=== PATIENT | male | born 1995 | race Caucasian/White ===

== ENCOUNTER 2016-09-02 16:57 | Emergency (ER) | payer OTHER ==
[~2016-09-02] VITALS: Ht 172.7 cm; Wt 80.0 kg
[2016-09-02 17:19] VITALS: Ht 172.7 cm; Wt 80.0 kg
[2016-09-02] MEDS ORDERED: AMO500 PO (17:34)
[2016-09-02] MEDS ORDERED: IBUP-1542 PO (17:34)
[2016-09-02] MEDS ORDERED: ONDA4TAB14 PO (17:35)
--- NOTE | 2016-09-02 17:42 | ERD ---
ER Documentation Chief Complaint Date/Time DATE: 09/02/16 TIME: 17:39 Chief Complaint throat and rt ear pain x 5 days HPI 21-year-old male patient with no significant past medical history presents to the ED complaining of sore throat that started 5 days ago. Reports that he saw white spots on his right side of the tonsil. States that he is nauseous but denies any vomiting or diarrhea. States that this is the first time it is happening. Denies any chest pain, shortness of breath, abdominal pain. States that he has odynophagia but denies any dysphagia. Denies any wheezing, fever, chills, abdominal pain, rashes. ROS All systems reviewed and are negative except as per history of present illness. Medications Home Meds Active Scripts Ondansetron (Ondansetron Odt) 4 Mg Tab.rapdis, 4 MG PO Q6H Y for NAUSEA AND/OR VOMITING, #10 TAB Prov:SUKHDEEP ONEIL PA-C 09/02/16 Ibuprofen* (Motrin*) 600 Mg Tab, 600 MG PO Q6, #30 TAB Prov:SUKHDEEP ONEIL PA-C 09/02/16 Amoxicillin* (Amoxicillin*) 500 Mg Cap, 500 MG PO BID for 10 Days, CAP Prov:SUKHDEEP ONEIL PA-C 09/02/16 Allergies Allergies: Coded Allergies: No Known Allergy (Unverified , 07/06/15) PMhx/Soc Hx Alcohol Use: No Hx Substance Use: No Hx Tobacco Use: No Physical Exam Vitals Vital Signs Date Time Temp Pulse Resp B/P Pulse Ox O2 Delivery O2 Flow Rate FiO2 09/02/16 17:19 99.1 78 20 138/80 100 Physical Exam Const: [id number], well-nourished. In no acute distress. Smiling and playful. Head: Atraumatic, normocephalic Eyes: Normal Conjunctiva without injection. No purulent discharge. PERRL. EOMI ENT: Normal external ear. Ear canal without erythema. Tympanic membrane pearly bettencourt without effusion or bulging. Nasal canal clear with normal turbinates. Moist oropharynx with right tonsillar exudates. Non-erythematous pharynx. Uvula midline. No drooling. No trismus. Neck: Full range of motion. No meningismus. No cervical lymphadenopathy. Resp: Clear to auscultation bilaterally. No wheezing, rhonchi, rales, or crackles. No accessory muscle use. No retractions. No stridor at rest. Cardio: Regular rate and rhythm. No murmurs, rubs or gallops. Abd: Soft, non tender, non distended. Normal bowel sounds. No palpable masses. Skin: No petechiae or rashes Ext: No cyanosis, or edema. Neur: Awake and alert. Psych: Normal Mood and Affect Procedures/MDM 21-year-old male patient with no significant past medical history presents to the ED complaining of sore throat, fever. Patient is afebrile and nontoxic- appearing. Patient has normal vital signs. Patient's physical exam is consistent with presumed strep pharyngitis. Based on Centor's Criteria, patient has reported fever at home, exudates noted on right tonsils, no cough. Patient is appropriate for outpatient antibiotics. Patient's physical exam include lungs which were clear to auscultation and a normal pulse oximetry. Bilateral ears pearly henson. No tenderness to palpation of tragus or mastoid. Low suspicion for mastoiditis, otitis externa, otitis media. Patient is speaking in full sentences. There is a low suspicion for pneumonia, epiglottitis , croup, sinusitis, peritonsillar abscess, hands foot mouth disease, scarlet fever, Kawasaki disease, retropharyngeal abscess, meningitis, sepsis, acute abdomen or other emergent conditions. Discharge medications: Zofran, Ibuprofen, Amoxicillin Follow up with primary care physician in 1-2 days. Instructed patient to return to the ED sooner for any worsening symptoms. Patient's questions were answered. Patient understood and agreed with discharge plan. Patient discharged stable. Departure Diagnosis: Primary Impression: Sore throat Additional Impression: Nausea Condition: Stable Patient Instructions: Pharyngitis, Strep (Presumed) Referrals: COMMUNITY CLINICS YOU HAVE RECEIVED A MEDICAL SCREENING EXAM AND THE RESULTS INDICATE THAT YOU DO NOT HAVE A CONDITION THAT REQUIRES URGENT TREATMENT IN THE EMERGENCY DEPARTMENT. FURTHER EVALUATION AND TREATMENT OF YOUR CONDITION CAN WAIT UNTIL YOU ARE SEEN IN YOUR DOCTORS OFFICE WITHIN THE NEXT 1-2 DAYS. IT IS YOUR RESPONSIBILITY TO MAKE AN APPOINTMENT FOR FOLOW-UP CARE. IF YOU HAVE A PRIMARY DOCTOR --you should call your primary doctor and schedule an appointment IF YOU DO NOT HAVE A PRIMARY DOCTOR YOU CAN CALL OUR PHYSICIAN REFERRAL HOTLINE AT IF YOU CAN NOT AFFORD TO SEE A PHYSICIAN YOU CAN CHOSE FROM THE FOLLOWING [facility] [address] [place] [facility] [address] [place] [facility] [address] [facility] [address] [facility] [address] [facility] [address] [facility]. [facility] YOU HAVE RECEIVED A MEDICAL SCREENING EXAM AND THE RESULTS INDICATE THAT YOU DO NOT HAVE A CONDITION THAT REQUIRES URGENT TREATMENT IN THE EMERGENCY DEPARTMENT. FURTHER EVALUATION AND TREATMENT OF YOUR CONDITION CAN WAIT UNTIL YOU ARE SEEN IN YOUR DOCTORS OFFICE WITHIN THE NEXT 1-2 DAYS. IT IS YOUR RESPONSIBILITY TO MAKE AN APPOINTMENT FOR FOLOW-UP CARE. IF YOU HAVE A PRIMARY DOCTOR --you should call your primary doctor and schedule and appointment IF YOU DO NOT HAVE A PRIMARY DOCTOR YOU CAN CALL OUR PHYSICIAN REFERRAL HOTLINE AT . IF YOU CAN NOT AFFORD TO SEE A PHYSICIAN YOU CAN CHOSE FROM THE FOLLOWING [facility] INSTITUTIONS: [facility] [address] [place] [address] [facility] [address] [place] [address] [facility] [address] [place] [address] [facility] URGENT CARE/SPECIALTIES Additional Instructions: Call your primary care doctor TOMORROW for an appointment during the next 2-3 days.See the doctor sooner or return here if your condition worsens before your appointment time. SUKHDEEP ONEIL PA-C Sep 02, 2016 17:42
== END 2016-09-02 17:37 | disposition home or self-care (01) ==
LOC: E/R 16:57
DX: J02.9 Acute pharyngitis, unspecified (principal); R11.0 Nausea
CPT/HCPCS: 99284

== ENCOUNTER 2017-02-04 21:26 | Emergency (ER) | payer OTHER ==
[~2017-02-04] VITALS: Ht 165.1 cm; Wt 78.7 kg
[~2017-02-04 21:26] MED LIST: AMOX500C2 PO; IBUP-1542 PO; ONDA4TAB14 PO
[2017-02-04 21:30] VITALS: Ht 165.1 cm; Wt 78.7 kg
[2017-02-04] MEDS ORDERED: AMOX500C2 PO (22:56)
[2017-02-04] MEDS ORDERED: IBUP-1542 PO (22:56)
--- NOTE | 2017-02-04 22:56 | ERD ---
ER Documentation Chief Complaint Chief Complaint Sore throat HPI The patient is a 21-year-old male who presents to the emergency department with complaint of sore throat for the past 3 days. The patient reports that his pain is constant, localized to the posterior pharynx, and is worse upon swallowing. Denies any difficulty tolerating solids or liquids. Denies difficulty tolerating his oral secretions. Denies stridor, or difficulty opening or closing the mouth. Denies any change in phonation. He reports associated fevers, chills and myalgias. He denies any rhinorrhea, nasal congestion, ear pain, cough, neck pain, neck stiffness or new rashes. Denies abdominal pain, vomiting, diarrhea. Denies any sick contacts with similar symptoms. ROS All systems reviewed and are negative except as per history of present illness. Medications Home Meds Active Scripts Benzocaine/Menthol* (Cepacol* Sore Throat Lozenges) 1 Each Lozenge, 1 EACH MM q2h Y for SORE THROAT, #20 [place]ZENGE Prov:COSMO SORIANO PA-C 02/04/17 Ibuprofen* (Motrin*) 600 Mg Tab, 600 MG PO Q6, #30 TAB Prov:COSMO SORIANO PA-C 02/04/17 Amoxicillin* (Amoxicillin*) 500 Mg Cap, 500 MG PO BID for 10 Days, CAP Prov:COSMO SORIANO PA-C 02/04/17 Ondansetron (Ondansetron Odt) 4 Mg Tab.rapdis, 4 MG PO Q6H Y for NAUSEA AND/OR VOMITING, #10 TAB Prov:SUKHDEEP ONEIL PA-C 09/02/16 Ibuprofen* (Motrin*) 600 Mg Tab, 600 MG PO Q6, #30 TAB Prov:SUKHDEEP ONEIL PA-C 09/02/16 Amoxicillin* (Amoxicillin*) 500 Mg Cap, 500 MG PO BID for 10 Days, CAP Prov:SUKHDEEP ONEIL PA-C 09/02/16 Allergies Allergies: Coded Allergies: No Known Allergy (Unverified , 07/06/15) PMhx/Soc Medical and Surgical Hx: pt denies Medical Hx, pt denies Surgical Hx Hx Alcohol Use: No Hx Substance Use: No Hx Tobacco Use: No Smoking Status: Never smoker Physical Exam Vitals Vital Signs Date Time Temp Pulse Resp B/P Pulse Ox O2 Delivery O2 Flow Rate FiO2 02/04/17 21:30 99.1 81 20 144/71 98 Physical Exam GENERAL: Well-developed, well-nourished, in no acute distress HEENT: Head is normocephalic, atraumatic. No scleral pallor or icterus. Pupils equal, round and reactive to light. Extraocular movements intact. Conjunctiva pink. Nares are patent bilaterally. Bilaterally tympanic membranes are clear with no evidence of erythema, effusion or dulling of the light reflex. Moist mucous membranes. Posterior pharynx is erythematous with exudates noted bilaterally. Uvula is midline. No trismus, stridor or excessive drooling. No pooling of oral secretions. No submandibular swelling. No brawny induration. Phonation is normal. NECK: Supple. Tender anterior cervical lymphadenopathy. Trachea midline. No nuchal rigidity. Full range of motion. RESPIRATORY: Lungs are clear to auscultation bilaterally. No rales, rhonchi or wheezing. Equal breath sounds. Normal expiratory effort. CARDIOVASCULAR: Regular rate and rhythm. S1 and S2 normal. No murmurs, rubs, or gallops. GASTROINTESTINAL: Abdomen is soft, nontender, and nondistended. No guarding, no rebound tenderness. Normal bowel sounds. EXTREMITIES: No clubbing, cyanosis, or edema. Normal skin perfusion. Moving all extremities. No focal swelling or erythema. NEUROLOGIC: The patient is alert, awake, and oriented. Nonfocal exam. INTEGUMENT: Skin is clean, dry and intact. No rashes, lesions or petechiae present. Normal turgor. PSYCHIATRIC: Appropriate; Cooperative. Procedures/MDM This is a 21-year-old male presenting to the Emergency Department complaining of sore throat and fever. He is non-toxic appearing and exhibits no meningeal signs. On physical examination the patient's posterior pharynx is erythematous, with exudates noted bilaterally. He had tender anterior cervical lymphadenopathy. The differential diagnosis includes, but is not limited to, pharyngitis, laryngitis, epiglottitis, peritonsillar abscess, Ryder's angina, mononucleosis, allergic reaction, candidiasis, stomatitis, foreign body, dental pain, pneumonia. The patient's condition remained stable during his stay. Given that the patient presented with recent fever, tonsillar exudates, tender anterior cervical lymphadenopathy and no cough, he fulfilled all four conditions of the Centor Criteria, and I believe that the patient's symptoms are most consistent with exudative pharyngitis, likely streptococcal. Uvula is midline. There was no uvular deviation, submandibular swelling, brawny induration, elevation of the tongue, change in phonation, tripoding. I do not suspect peritonsillar abscess, retropharyngeal abscess, Ryder's angina, epiglottitis or any other emergent medical condition. At this time, the patient is in stable condition, and therefore can be discharged home with prescriptions for ibuprofen, Cepacol lozenges and amoxicillin, and given strict return precautions for signs of deteriorating or worsening condition. He is advised to follow-up with A primary care provider for reevaluation and further management within the next 2-3 days, or return to the ER sooner for any new or worsening symptoms. I shared my medical decision making and plan with the patient at length and in great detail, and he verbally understands and agrees with the plan for further observation and care as an outpatient. At the time of discharge , all questions were answered. Departure Diagnosis: Primary Impression: Exudative pharyngitis Condition: Stable Patient Instructions: Pharyngitis, Strep (Presumed), Self-Care for Sore Throats , Strep Throat, When You Have a Sore Throat Additional Instructions: Call your primary care doctor TOMORROW for an appointment during the next 2-3 days.See the doctor sooner or return here if your condition worsens before your appointment time. COSMO SORIANO PA-C Feb 04, 2017 22:56
[2017-02-04] MEDS ORDERED: BENZ1LOZ52 MM (22:57)
== END 2017-02-05 00:17 | disposition home or self-care (01) ==
LOC: FTE 21:26
DX: J02.9 Acute pharyngitis, unspecified (principal)
CPT/HCPCS: 99283